=== PATIENT | female | born 1945 | race African-American/Black ===

== ENCOUNTER 2018-02-15 13:47 | Inpatient (IN) | payer MEDICARE, MEDICAID ==
[~2018-02-15] VITALS: Ht 162.6 cm; Wt 86.2 kg
[2018-02-15] MEDS ORDERED: ONDANSETRON HCL 4MG/2ML INJ IV STA (15:36)
[2018-02-15] MEDS ORDERED: MORPHINE SULFATE 4 MG/ML CPJ (NOT FOR IM USE) IV STA (15:36)
[2018-02-15 15:54] LABS: BASOPHILS % 0.3 % (0.0-2.0); EOSINOPHILS % 0.5 % (0.0-5.0); HEMOGLOBIN. 10.1 g/dL (12.0-16.0); LYMPHOCYTES % 10.8 % (20.0-50.0); MEAN CORPUSCULAR VOLUME 91.9 fL (81.0-99.0); MEAN PLATELET VOLUME 7.3 fl (7.4-10.4); MONOCYTES % 11.5 % (2.0-8.0); NEUTROPHILS % 76.9 % (40.0-76.0); PLATELET 323 x1000/uL (130-400); RED BLOOD CELL COUNT 3.26 mill/uL (4.2-5.4); RED CELL DISTRIBUTION WIDTH 14.9 % (11.6-14.6)
[2018-02-15 16:03] LABS: INR 1.2; PARTIAL THROMBOPLASTIN TIME 41.7 sec (23.4-31.0); PROTHROMBIN TIME 11.7 sec (9.1-11.1)
[2018-02-15 16:05] LABS: CHLORIDE 98 mEq/L (98-107)
[2018-02-15] MEDS ORDERED: FUROSEMIDE 40MG/4ML VIAL IVP ONE (16:30)
[2018-02-15 20:15] VITALS: BP 182/74
[2018-02-15] MEDS ORDERED: CLONIDINE 0.1MG TABLET PO PRN (20:15)
[2018-02-15] MEDS ORDERED: ONDANSETRON HCL 4MG/2ML INJ IV PRN (20:15)
[2018-02-15] MEDS ORDERED: ACETAMINOPHEN 325MG TABLET PO PRN (20:15)
[2018-02-15] MEDS ORDERED: MAGNESIUM/ALUMINUM HYDROXIDE/SIMETHICONE 30ML UDC PO PRN (20:15)
[2018-02-15] MEDS ORDERED: IPRATROPIUM/ALBUTEROL 0.5-3(2.5)MG/3ML NEB INH PRN (20:15)
[2018-02-15 21:00] VITALS: BP 143/68
[2018-02-15] MEDS: SODIUM CHLORIDE 0.9% INJ 3ML FLUSH IVF SCH (21:38)
[2018-02-15] MEDS ORDERED: HYDROCODONE/ACETAMINOPHEN 5/325MG TABLET PO PRN (23:15)
[2018-02-15] MEDS ORDERED: METHYLPREDNISOLONE SOD SUCC 40 MG/ML VIAL IV NR (23:19)
[2018-02-16 00:06] VITALS: BP 188/82
[2018-02-16] MEDS: AMLODIPINE 5MG TABLET PO SCH ×3 (01:01→20:40)
[2018-02-16 04:00] VITALS: BP 171/66
[2018-02-16] MEDS: SODIUM CHLORIDE 0.9% INJ 3ML FLUSH IVF SCH ×3 (06:35→21:50)
[2018-02-16 07:30] VITALS: BP 161/74
[2018-02-16] MEDS: COLCHICINE 0.6MG TABLET PO SCH ×2 (09:08→20:40)
[2018-02-16 12:00] VITALS: BP 147/78
[2018-02-16] MEDS ORDERED: MULT-1146 PO (12:25)
[2018-02-16] MEDS ORDERED: TOLT2CAP21 PO (12:25)
[2018-02-16] MEDS ORDERED: ABAC300T9 PO (12:25)
[2018-02-16] MEDS ORDERED: AMLO10TA80 PO (12:25)
[2018-02-16] MEDS ORDERED: METO100T16 PO (12:25)
[2018-02-16] MEDS ORDERED: ATOR-2 PO (12:25)
[2018-02-16] MEDS ORDERED: LAMI100T7 PO (12:25)
[2018-02-16] MEDS ORDERED: CHOL200059 PO (12:25)
[2018-02-16] MEDS ORDERED: ASPI-1158 PO (12:25)
[2018-02-16 16:00] VITALS: BP 154/103
[2018-02-16] MEDS ORDERED: METHYLPREDNISOLONE SOD SUCC 125 MG/2 ML VIAL IV SCH (16:45)
[2018-02-16] MEDS: ABACAVIR SULFATE 300MG TABLET PO SCH (18:00)
[2018-02-16 20:00] VITALS: BP 152/86
[2018-02-16] MEDS: METOPROLOL TARTRATE 100MG TABLET PO SCH (20:42)
[2018-02-16] MEDS: LORAZEPAM 0.5MG TABLET PO PRN (21:50)
[2018-02-17] VITALS: BP 149/74
[2018-02-17 04:00] VITALS: BP 157/74
[2018-02-17] MEDS: SODIUM CHLORIDE 0.9% INJ 3ML FLUSH IVF SCH ×3 (05:58→21:01)
[2018-02-17 08:11] VITALS: BP 158/79
[2018-02-17] MEDS: ABACAVIR SULFATE 300MG TABLET PO SCH ×3 (09:00→19:04)
[2018-02-17] MEDS: LAMIVUDINE 150MG TABLET PO SCH ×2 (09:00→13:24)
[2018-02-17] MEDS: MULTIVITAMINS,THER W-MINERALS TABLET PO SCH (09:39)
[2018-02-17] MEDS: CHOLECALCIFEROL (D3) 1000 UNIT TABLET PO SCH (09:39)
[2018-02-17] MEDS: AMLODIPINE 5MG TABLET PO SCH ×2 (09:39→20:52)
[2018-02-17] MEDS: METOPROLOL TARTRATE 100MG TABLET PO SCH ×2 (09:39→20:51)
[2018-02-17] MEDS: COLCHICINE 0.6MG TABLET PO SCH (09:39)
[2018-02-17] MEDS: ASPIRIN 81MG EC TABLET PO SCH (09:39)
[2018-02-17 10:04] LABS: HEMATOCRIT. 29.9 % (36.0-48.0); MEAN CORPUSCULAR HEMOGLOBIN 30.7 pg (28.0-32.0); MEAN CORPUSCULAR VOLUME 92.1 fL (81.0-99.0); MEAN PLATELET VOLUME 7.7 fl (7.4-10.4); PLATELET 363 x1000/uL (130-400); RED BLOOD CELL COUNT 3.25 mill/uL (4.2-5.4); RED CELL DISTRIBUTION WIDTH 14.4 % (11.6-14.6)
[2018-02-17] MEDS ORDERED: RALT400T MT (10:11)
[2018-02-17 11:28] LABS: PLATELET ESTIMATE NORMAL
[2018-02-17 12:13] VITALS: BP 151/77
[2018-02-17] MEDS: MICONAZOLE NITRATE 100MG VAG SUPP VG SCH ×2 (13:24→20:57)
[2018-02-17] MEDS: RALTEGRAVIR 400MG TABLET PO SCH ×2 (13:24→19:04)
[2018-02-17 15:45] VITALS: BP 105/72
[2018-02-17 20:00] VITALS: BP 163/71
[2018-02-17] MEDS: METRONIDAZOLE 500MG TABLET PO SCH (21:01)
[2018-02-18] VITALS (8 sets, daily range): BP systolic 108–172; BP diastolic 68–79
[2018-02-18] MEDS: SODIUM CHLORIDE 0.9% INJ 3ML FLUSH IVF SCH ×3 (05:36→22:23)
[2018-02-18] MEDS: METRONIDAZOLE 500MG TABLET PO SCH ×3 (05:36→22:25)
[2018-02-18] MEDS: ASPIRIN 81MG EC TABLET PO SCH (09:35)
[2018-02-18] MEDS: COLCHICINE 0.6MG TABLET PO SCH (09:35)
[2018-02-18] MEDS: ABACAVIR SULFATE 300MG TABLET PO SCH ×2 (09:35→19:57)
[2018-02-18] MEDS: CHOLECALCIFEROL (D3) 1000 UNIT TABLET PO SCH (09:35)
[2018-02-18] MEDS: MULTIVITAMINS,THER W-MINERALS TABLET PO SCH (09:35)
[2018-02-18] MEDS: AMLODIPINE 5MG TABLET PO SCH ×2 (09:35→22:22)
[2018-02-18] MEDS: RALTEGRAVIR 400MG TABLET PO SCH ×2 (09:36→19:57)
[2018-02-18] MEDS: LAMIVUDINE 150MG TABLET PO SCH (09:36)
[2018-02-18] MEDS: METOPROLOL TARTRATE 100MG TABLET PO SCH ×2 (09:39→22:22)
[2018-02-18] MEDS: LORAZEPAM 0.5MG TABLET PO PRN (22:19)
[2018-02-18] MEDS: MICONAZOLE NITRATE 100MG VAG SUPP VG SCH (22:23)
[2018-02-19] VITALS: BP 162/68
[2018-02-19 04:00] VITALS: BP 151/58
[2018-02-19] MEDS: SODIUM CHLORIDE 0.9% INJ 3ML FLUSH IVF SCH ×2 (05:51→13:30)
[2018-02-19] MEDS: METRONIDAZOLE 500MG TABLET PO SCH ×2 (05:51→14:28)
[2018-02-19] MEDS: CHOLECALCIFEROL (D3) 1000 UNIT TABLET PO SCH (08:06)
[2018-02-19] MEDS: ASPIRIN 81MG EC TABLET PO SCH (08:06)
[2018-02-19] MEDS: MULTIVITAMINS,THER W-MINERALS TABLET PO SCH (08:06)
[2018-02-19] MEDS: COLCHICINE 0.6MG TABLET PO SCH (08:06)
[2018-02-19] MEDS: RALTEGRAVIR 400MG TABLET PO SCH (08:06)
[2018-02-19] MEDS: LAMIVUDINE 150MG TABLET PO SCH (08:06)
[2018-02-19] MEDS: ABACAVIR SULFATE 300MG TABLET PO SCH (08:06)
[2018-02-19] MEDS: METOPROLOL TARTRATE 100MG TABLET PO SCH (08:07)
[2018-02-19] MEDS: AMLODIPINE 5MG TABLET PO SCH (08:07)
[2018-02-19 08:41] VITALS: BP 180/69
[2018-02-19 12:21] VITALS: BP 152/72
[2018-02-19 15:15] VITALS: BP 152/72
[2018-02-19] MEDS ORDERED: ATORVASTATIN CALCIUM 10MG TABLET PO SCH (21:00)
== END 2018-02-19 16:00 | disposition home health service (06) | DRG 553 ==
LOC: ER 13:47 → 6WST 15:23 → EDBEDREQ 16:19 → ENRESERV 18:41
PROVIDERS: ADMIT Internal Medicine; ATTEND Internal Medicine
DX: M10.9 Gout, unspecified (principal); E43 Unspecified severe protein-calorie malnutrition; E87.1 Hypo-osmolality and hyponatremia; N18.9 Chronic kidney disease, unspecified; M21.611 Bunion of right foot; E11.22 Type 2 diabetes mellitus with diabetic chronic kidney disease; I48.91 Unspecified atrial fibrillation; M21.612 Bunion of left foot; I12.9 Hypertensive chronic kidney disease with stage 1 through stage 4 chronic kidney disease, or unspecified chronic kidney disease; A59.01 Trichomonal vulvovaginitis; Z60.2 Problems related to living alone; Z88.0 Allergy status to penicillin; Z88.2 Allergy status to sulfonamides; Z88.6 Allergy status to analgesic agent; Z91.013 Allergy to seafood; Z68.32 Body mass index [BMI] 32.0-32.9, adult
CPT/HCPCS: 36415; 71045; 80048; 82962; 83880; 84484; 84550; 85651; 87070; 87077; 93005; 93306; 96374; 96375; 97116; 97162; 97530; 99285; C1893; J1940; J2270; J2405; J2920; J2930

== ENCOUNTER → 2019-07-23 | Outpatient (CLI) | payer MEDICARE, MEDICAID ==
[~2019-07-23] MED LIST: ABAC300T9 PO; AMLO10TA80 PO; ASPI-1158 PO; ATOR-2 PO; CHOL200059 PO; LAMI100T7 PO; METO100T16 PO; MULT-1146 PO; RALT400T MT; TOLT2CAP21 PO
== END | disposition home or self-care (01) ==
LOC: MRI 10:30
PROVIDERS: ATTEND Neurological Surgery
DX: M47.816 Spondylosis without myelopathy or radiculopathy, lumbar region (principal); M48.061 Spinal stenosis, lumbar region without neurogenic claudication; M43.16 Spondylolisthesis, lumbar region; N28.1 Cyst of kidney, acquired
CPT/HCPCS: 72148

== ENCOUNTER → 2020-04-09 | Outpatient (CLI) | payer MEDICARE, MEDICAID | END | disposition home or self-care (01) | LOC: MRI 10:30 | PROVIDERS: ATTEND Neurological Surgery | DX: M51.26 Other intervertebral disc displacement, lumbar region (principal); M48.061 Spinal stenosis, lumbar region without neurogenic claudication | CPT/HCPCS: 72148 ==

== ENCOUNTER → 2020-04-22 | Outpatient (CLI) | payer MEDICARE, MEDICAID | END | disposition home or self-care (01) | LOC: MRI 09:24 | PROVIDERS: ATTEND Neurological Surgery | DX: M50.33 Other cervical disc degeneration, cervicothoracic region (principal); M48.03 Spinal stenosis, cervicothoracic region; M47.814 Spondylosis without myelopathy or radiculopathy, thoracic region; M51.24 Other intervertebral disc displacement, thoracic region; M48.02 Spinal stenosis, cervical region; M50.223 Other cervical disc displacement at C6-C7 level; M25.78 Osteophyte, vertebrae | CPT/HCPCS: 72141; 72146 ==

== ENCOUNTER 2021-08-22 13:28 | Inpatient (IN) | payer MEDICARE, MEDICAID ==
[~2021-08-22] VITALS: Ht 167.6 cm; Wt 74.2 kg
[~2021-08-22 13:28] MED LIST changes: -ASPI-1158 PO; +ASPI-1406 PO
[2021-08-22] MEDS ORDERED: ACETAMINOPHEN 325MG TABLET PO STA (14:08)
[2021-08-22] MEDS ORDERED: SODIUM CHLORIDE 0.9% 1,000 ML IV ONE (14:15)
[2021-08-22 14:53] LABS: BASOPHILS % 0.2 % (0.0-2.0); EOSINOPHILS % 0.1 % (0.0-5.0); HEMATOCRIT. 35.1 % (36.0-48.0); HEMOGLOBIN. 11.5 g/dL (12.0-16.0); LYMPHOCYTES % 7.5 % (20.0-50.0); MEAN CORPUSCULAR HEMOGLOBIN 28.7 pg (28.0-32.0); MEAN CORPUSCULAR VOLUME 87.6 fL (81.0-99.0); MEAN PLATELET VOLUME 7.2 fl (7.4-10.4); MONOCYTES % 4.9 % (2.0-8.0); NEUTROPHILS % 87.3 % (40.0-76.0); PLATELET 365 x1000/uL (130-400); RED CELL DISTRIBUTION WIDTH 14.6 % (11.6-14.6)
[2021-08-22 14:54] LABS: CLARITY URINE CLOUDY (CLEAR); COLOR URINE YELLOW (YELLOW); KETONES URINE NEGATIVE (NEGATIVE); LEUKOCYTE ESTERASE URINE TRACE (NEGATIVE); NITRITE URINE NEGATIVE (NEGATIVE); OCCULT BLOOD URINE 2+ (NEGATIVE); PROTEIN URINE 2+ (NEGATIVE); SPECIFIC GRAVITY URINE 1.013 (1.005-1.030); UROBILINOGEN URINE 0.2 E.U./dL (0.2-1.0)
[2021-08-22 15:03] LABS: CHLORIDE 97 mEq/L (98-107)
[2021-08-22] MEDS ORDERED: ASPIRIN 325MG EC TABLET PO ONE (15:45)
[2021-08-22] MEDS ORDERED: LEVOFLOXACIN 500MG PREMIX 100 ML IV NR (16:15)
[2021-08-22] MEDS ORDERED: CLONIDINE 0.1MG TABLET PO NR (18:00)
[2021-08-22] MEDS ORDERED: ACETAMINOPHEN 325MG TABLET PO NR (19:22)
[2021-08-22 21:00] VITALS: BP 157/77
[2021-08-22 21:30] VITALS: BP 159/77
[2021-08-22] MEDS ORDERED: HYDROCODONE/ACETAMINOPHEN 5/325MG TABLET PO PRN (23:45)
[2021-08-22] MEDS ORDERED: SODIUM BICARBONATE 8.4% 1 MEQ/ML 50ML SYR IV NR (23:45)
[2021-08-23] VITALS: BP 172/90
[2021-08-23] MEDS ORDERED: NALOXONE HCL 0.4 MG/ML 1ML VIAL IV PRN (00:15)
[2021-08-23] MEDS: TRAMADOL 50MG TABLET PO PRN (00:43)
[2021-08-23] MEDS: CLONIDINE 0.1MG TABLET PO PRN ×2 (00:44→06:47)
[2021-08-23 04:00] VITALS: BP 159/93
[2021-08-23 06:13] LABS: HEMATOCRIT 26.8 % (36.0-48.0); HEMOGLOBIN 8.9 g/dL (12.0-16.0); MEAN CORPUSCULAR HEMOGLOBIN 29.2 pg (28.0-32.0); PLATELET 266 x1000/uL (130-400); RED BLOOD CELL COUNT 3.05 mill/uL (4.2-5.4); RED CELL DISTRIBUTION WIDTH 14.4 % (11.6-14.6)
[2021-08-23] MEDS: SODIUM CHLORIDE 0.9% 1,000 ML IV SCH (07:30)
[2021-08-23 08:00] VITALS: BP 155/85
[2021-08-23] MEDS ORDERED: ASPIRIN 81MG TABLET PO SCH (09:00)
[2021-08-23] MEDS ORDERED: METOPROLOL TARTRATE 50MG TABLET PO SCH (09:00)
[2021-08-23 09:35] LABS: BG CARBOXYHEMOGLOBIN 0.3 % (0.5-1.5); BG DEOXYHEMOGLOBIN 2.1 % (0.0-5.0); BG FRACTION INSPIRED OXYGEN 21; BG HCO3 ACT 12.3 mmol/L (22.0-26.0); BG METHEMOGLOBIN 0.3 % (0.0-1.5); BG OXYGEN SATURATION 97.9 % (92.0-98.5); BG OXYHEMOGLOBIN 97.3 % (94.0-97.0); BG PCO2 23.1 mmHg (35.0-45.0); BG PH 7.343 (7.350-7.450); BG PO2 106.1 mmHg (75.0-100.0); BG SAMPLE SITE RIGHT RADIAL; BG TOTAL HEMOGLOBIN 9.1 g/dL (12.0-18.0); BG VENT MODE ROOM AIR
[2021-08-23] MEDS: HYDRALAZINE HCL 100MG TABLET PO SCH ×2 (10:16→21:45)
[2021-08-23] MEDS: AMLODIPINE 10MG TABLET PO SCH (10:16)
[2021-08-23 10:21] LABS: CREATINE KINASE 350 IU/L (26-192)
[2021-08-23] MEDS ORDERED: SODIUM CHLORIDE 0.45% 1,000 ML IV SCH (10:45)
[2021-08-23 12:00] VITALS: BP 157/84
[2021-08-23] MEDS ORDERED: SODIUM BICARBONATE 4% (2.4MEQ) 5ML VIAL IV ONE (13:16)
[2021-08-23] MEDS ORDERED: LIDOCAINE HCL 1% 20ML VIAL (Pyxis) INJ ONE ×2 (13:16→14:21)
[2021-08-23 13:29] LABS: INR 1.1; PROTHROMBIN TIME 11.9 sec (9.6-11.0)
[2021-08-23] MEDS ORDERED: HEPARIN 1000 UNITS/ML 10ML ONE (14:23)
[2021-08-23 15:05] LABS: HEPATITIS B SURFACE ANTIGEN NEGATIVE
[2021-08-23 16:00] VITALS: BP 152/83
[2021-08-23 20:00] VITALS: BP 124/67
[2021-08-23] MEDS: ONDANSETRON HCL 4MG/2ML INJ IV PRN (21:45)
[2021-08-24] VITALS: BP 108/50
[2021-08-24 04:00] VITALS: BP 152/65
[2021-08-24] MEDS: SODIUM CHLORIDE 0.9% 1,000 ML IV SCH ×2 (05:42→13:30)
[2021-08-24 06:37] LABS: HEMATOCRIT. 28.2 % (36.0-48.0); HEMOGLOBIN. 9.4 g/dL (12.0-16.0); MEAN CORPUSCULAR HEMOGLOBIN 29.1 pg (28.0-32.0); MEAN CORPUSCULAR VOLUME 87.8 fL (81.0-99.0); MEAN PLATELET VOLUME 7.2 fl (7.4-10.4); PLATELET 286 x1000/uL (130-400); RED BLOOD CELL COUNT 3.22 mill/uL (4.2-5.4); RED CELL DISTRIBUTION WIDTH 14.8 % (11.6-14.6)
[2021-08-24 07:10] LABS: ANTI-NUCLEAR ANTIBODIES DIRECT Negative (Negative)
[2021-08-24 08:00] VITALS: BP 141/81
[2021-08-24] MEDS: AMLODIPINE 10MG TABLET PO SCH (08:30)
[2021-08-24] MEDS: HYDRALAZINE HCL 100MG TABLET PO SCH ×2 (08:30→21:31)
[2021-08-24 08:31] LABS: PLATELET ESTIMATE NORMAL
[2021-08-24] MEDS: TRAMADOL 50MG TABLET PO PRN (11:03)
[2021-08-24 12:00] VITALS: BP 152/89
[2021-08-24 16:00] VITALS: BP 148/80
[2021-08-24 20:00] VITALS: BP 132/69
[2021-08-25] VITALS: BP 162/69
[2021-08-25] MEDS: SODIUM CHLORIDE 0.9% 1,000 ML IV SCH ×3 (01:03→20:43)
[2021-08-25] MEDS: CLONIDINE 0.1MG TABLET PO PRN ×2 (01:04→20:43)
[2021-08-25 04:00] VITALS: BP 154/86
[2021-08-25 08:00] VITALS: BP_SYST 176; BP_SYST 185; BP_DIAS 79; BP_DIAS 97
[2021-08-25 08:15] LABS: BASOPHILS % 0.1 % (0.0-2.0); EOSINOPHILS % 0.1 % (0.0-5.0); HEMATOCRIT. 24.7 % (36.0-48.0); HEMOGLOBIN. 8.3 g/dL (12.0-16.0); LYMPHOCYTES % 9.5 % (20.0-50.0); MEAN CORPUSCULAR HEMOGLOBIN 29.8 pg (28.0-32.0); MEAN CORPUSCULAR VOLUME 88.6 fL (81.0-99.0); MEAN PLATELET VOLUME 6.7 fl (7.4-10.4); MONOCYTES % 6.4 % (2.0-8.0); NEUTROPHILS % 83.9 % (40.0-76.0); PLATELET 256 x1000/uL (130-400); RED BLOOD CELL COUNT 2.79 mill/uL (4.2-5.4); RED CELL DISTRIBUTION WIDTH 14.3 % (11.6-14.6)
[2021-08-25 08:46] LABS: PHOSPHORUS 4.5 mg/dL (2.5-4.9)
[2021-08-25] MEDS: HYDRALAZINE HCL 100MG TABLET PO SCH ×2 (09:51→20:43)
[2021-08-25] MEDS: AMLODIPINE 10MG TABLET PO SCH (09:51)
[2021-08-25 12:00] VITALS: BP_SYST 132; BP_SYST 160; BP_DIAS 76; BP_DIAS 80
[2021-08-25] MEDS ORDERED: POTASSIUM CHLORIDE 20MEQ/PACKET PO NR (12:15)
[2021-08-25] MEDS: ENOXAPARIN 80MG/0.8ML SYR SUBCUT SCH (13:52)
[2021-08-25] MEDS: ONDANSETRON HCL 4MG/2ML INJ IV PRN (13:52)
[2021-08-25 16:00] VITALS: BP_SYST 155; BP_SYST 169; BP_DIAS 72; BP_DIAS 84
[2021-08-25] MEDS: TRAMADOL 50MG TABLET PO PRN (16:22)
[2021-08-25 20:00] VITALS: BP 182/95
[2021-08-26] VITALS (7 sets, daily range): BP systolic 140–181; BP diastolic 64–89
[2021-08-26] MEDS: SODIUM CHLORIDE 0.9% 1,000 ML IV SCH ×2 (05:07→10:38)
[2021-08-26 07:18] LABS: INR 1.1; PROTHROMBIN TIME 11.9 sec (9.6-11.0)
[2021-08-26 07:19] LABS: BASOPHILS % 0.3 % (0.0-2.0); EOSINOPHILS % 0.5 % (0.0-5.0); HEMOGLOBIN. 8.6 g/dL (12.0-16.0); MEAN CORPUSCULAR HEMOGLOBIN 29.5 pg (28.0-32.0); MEAN CORPUSCULAR VOLUME 89.7 fL (81.0-99.0); MEAN PLATELET VOLUME 7.2 fl (7.4-10.4); MONOCYTES % 6.8 % (2.0-8.0); NEUTROPHILS % 80.4 % (40.0-76.0); PLATELET 265 x1000/uL (130-400); RED CELL DISTRIBUTION WIDTH 14.6 % (11.6-14.6)
[2021-08-26] MEDS: CLONIDINE 0.1MG TABLET PO PRN ×2 (08:33→17:37)
[2021-08-26] MEDS: AMLODIPINE 10MG TABLET PO SCH (08:33)
[2021-08-26] MEDS: HYDRALAZINE HCL 100MG TABLET PO SCH (08:33)
[2021-08-26] MEDS: ENOXAPARIN 80MG/0.8ML SYR SUBCUT SCH (08:35)
[2021-08-26 10:22] LABS: TOTAL IRON BINDING CAPACITY 197 ug/dL (250-450)
[2021-08-26] MEDS ORDERED: HEPARIN SODIUM 1,000 UNIT/1ML VIAL IV SCH (12:00)
[2021-08-26] MEDS ORDERED: MANNITOL 12.5G (25%) VIAL 50ML IV NR (13:00)
[2021-08-26 13:07] LABS: HIV 1 ABS Reactive (Non Reactive); HIV 2 ABS Non Reactive (Non Reactive); HIV SCREEN 4G Preliminary Reactive (Non Reactive); INTERPRETATION HIV-1 Positive (.)
[2021-08-26] MEDS ORDERED: HYDRALAZINE HCL 100MG TABLET PO SCH (17:00)
== END 2021-08-26 21:10 | DRG 682 ==
LOC: ER 13:33 → 6WST 19:16 → EDBEDREQ 19:19 → EDBEDREQTM 19:19 → ENRESERV 19:35
PROVIDERS: ADMIT Internal Medicine; ATTEND Internal Medicine
PROC: 02H633Z Insertion of Infusion Device into Right Atrium, Percutaneous Approach (ICD-10-PCS; principal; 2021-08-23)
PROC: 5A1D70Z Performance of Urinary Filtration, Intermittent, Less than 6 Hours Per Day (ICD-10-PCS; 2021-08-23)
PROC: 0S9C3ZZ Drainage of Right Knee Joint, Percutaneous Approach (ICD-10-PCS; 2021-08-23)
PROC: B5181ZA Fluoroscopy of Superior Vena Cava using Low Osmolar Contrast, Guidance (ICD-10-PCS; 2021-08-23)
PROC: B548ZZA Ultrasonography of Superior Vena Cava, Guidance (ICD-10-PCS; 2021-08-23)
DX: N17.9 Acute kidney failure, unspecified (principal); G93.41 Metabolic encephalopathy; G82.50 Quadriplegia, unspecified; E43 Unspecified severe protein-calorie malnutrition; I13.0 Hypertensive heart and chronic kidney disease with heart failure and stage 1 through stage 4 chronic kidney disease, or unspecified chronic kidney disease; E87.1 Hypo-osmolality and hyponatremia; I69.351 Hemiplegia and hemiparesis following cerebral infarction affecting right dominant side; N39.0 Urinary tract infection, site not specified; R47.01 Aphasia; M25.461 Effusion, right knee; D64.9 Anemia, unspecified; I48.0 Paroxysmal atrial fibrillation; I50.9 Heart failure, unspecified; I65.23 Occlusion and stenosis of bilateral carotid arteries; E86.0 Dehydration; M10.9 Gout, unspecified; E11.22 Type 2 diabetes mellitus with diabetic chronic kidney disease; E87.8 Other disorders of electrolyte and fluid balance, not elsewhere classified; Z20.822 Contact with and (suspected) exposure to COVID-19; M17.11 Unilateral primary osteoarthritis, right knee; M54.30 Sciatica, unspecified side; N18.30 Chronic kidney disease, stage 3 unspecified; R13.10 Dysphagia, unspecified; Z21 Asymptomatic human immunodeficiency virus [HIV] infection status; Z88.0 Allergy status to penicillin; Z88.2 Allergy status to sulfonamides; Z88.5 Allergy status to narcotic agent; Z68.24 Body mass index [BMI] 24.0-24.9, adult; R53.81 Other malaise
CPT/HCPCS: 20611; 36415; 36556; 36600; 70551; 71045; 73562; 76770; 76937; 77001; 80048; 80053; 81003; 82375; 82436; 82550; 82570; 82805; 83540; 83550; 83735; 83880; 83935; 83970; 84100; 84145; 84300; 84484; 84550; 85025; 85027; 86038; 86160; 86701; 86702; 86705; 86709; 86803; 87340; 87389; 87426; 92610; 93005; 97162; 97166; 97530; 99291; C1752; J1644; J1650; J1956; J2150; J2405; J3490; J7030

== ENCOUNTER 2021-08-26 21:10 | Inpatient (IN) | payer MEDICARE, MEDICAID ==
[~2021-08-26] VITALS: Ht 167.6 cm; Wt 84.5 kg
[2021-08-26 21:30] VITALS: BP 176/87
[2021-08-26] MEDS ORDERED: ONDANSETRON HCL 4MG/2ML INJ IV PRN (21:45)
[2021-08-26] MEDS ORDERED: TRAMADOL 50MG TABLET PO PRN (21:45)
[2021-08-26] MEDS ORDERED: NALOXONE HCL 0.4 MG/ML 1ML VIAL IV PRN (21:45)
[2021-08-26 22:00] VITALS: BP 176/87
[2021-08-26 22:51] VITALS: BP 153/102
[2021-08-26] MEDS: HYDRALAZINE HCL 100MG TABLET PO SCH (22:51)
[2021-08-26] MEDS: SODIUM CHLORIDE 0.9% 1,000 ML IV SCH (22:56)
[2021-08-27] MEDS: HYDRALAZINE HCL 100MG TABLET PO SCH ×3 (05:49→22:00)
[2021-08-27 07:19] LABS: INR 1.1; PROTHROMBIN TIME 11.8 sec (9.6-11.0)
[2021-08-27 07:27] LABS: BASOPHILS % 0.2 % (0.0-2.0); EOSINOPHILS % 0.4 % (0.0-5.0); HEMATOCRIT. 27.6 % (36.0-48.0); HEMOGLOBIN. 9.1 g/dL (12.0-16.0); LYMPHOCYTES % 11.6 % (20.0-50.0); MEAN CORPUSCULAR HEMOGLOBIN 29.5 pg (28.0-32.0); MEAN CORPUSCULAR VOLUME 89.8 fL (81.0-99.0); MEAN PLATELET VOLUME 7.2 fl (7.4-10.4); MONOCYTES % 7.3 % (2.0-8.0); NEUTROPHILS % 80.5 % (40.0-76.0); PLATELET 279 x1000/uL (130-400); RED BLOOD CELL COUNT 3.08 mill/uL (4.2-5.4); RED CELL DISTRIBUTION WIDTH 14.6 % (11.6-14.6)
[2021-08-27 08:00] VITALS: BP 180/86
[2021-08-27] MEDS: FOLIC ACID/VITAMIN B COMP W-C TABLET PO SCH (08:42)
[2021-08-27] MEDS: FERROUS SULFATE 325MG TABLET PO SCH ×3 (08:42→17:44)
[2021-08-27] MEDS: AMLODIPINE 10MG TABLET PO SCH (08:43)
[2021-08-27] MEDS: SODIUM CHLORIDE 0.9% 1,000 ML IV SCH ×2 (08:45→22:56)
[2021-08-27] MEDS: ENOXAPARIN 80MG/0.8ML SYR SUBCUT SCH (09:00)
[2021-08-27] MEDS: CLONIDINE 0.1MG TABLET PO PRN (09:05)
[2021-08-27 14:01] LABS: CHLORIDE 115 mEq/L (98-107)
[2021-08-27 14:13] LABS: PHOSPHORUS 2.8 mg/dL (2.5-4.9)
[2021-08-27 16:50] LABS: CLARITY URINE CLEAR (CLEAR); COLOR URINE YELLOW (YELLOW); KETONES URINE NEGATIVE (NEGATIVE); LEUKOCYTE ESTERASE URINE 1+ (NEGATIVE); NITRITE URINE NEGATIVE (NEGATIVE); OCCULT BLOOD URINE TRACE (NEGATIVE); PH URINE 7.5 (4.5-8.0); PROTEIN URINE 2+ (NEGATIVE); SPECIFIC GRAVITY URINE 1.008 (1.005-1.030); UROBILINOGEN URINE 0.2 E.U./dL (0.2-1.0)
[2021-08-27] MEDS: CLONIDINE 0.1MG TABLET PO SCH ×2 (17:45→22:01)
[2021-08-27 20:00] VITALS: BP 160/81
[2021-08-27] MEDS: EPOETIN ALFA-EPBX 10,000 UNIT/ML VIAL SUBCUT SCH (22:02)
[2021-08-28] MEDS: HYDRALAZINE HCL 100MG TABLET PO SCH ×3 (05:49→21:54)
[2021-08-28] MEDS: CLONIDINE 0.1MG TABLET PO SCH (05:50)
[2021-08-28] MEDS: CLONIDINE 0.1MG TABLET PO PRN ×2 (05:51→21:54)
[2021-08-28] MEDS: SODIUM CHLORIDE 0.9% 1,000 ML IV SCH ×2 (06:04→13:26)
[2021-08-28 06:17] LABS: BASOPHILS % 0.4 % (0.0-2.0); EOSINOPHILS % 2.9 % (0.0-5.0); HEMATOCRIT. 28.3 % (36.0-48.0); HEMOGLOBIN. 9.3 g/dL (12.0-16.0); MEAN CORPUSCULAR HEMOGLOBIN 29.1 pg (28.0-32.0); MEAN PLATELET VOLUME 7.1 fl (7.4-10.4); MONOCYTES % 4.8 % (2.0-8.0); NEUTROPHILS % 76.9 % (40.0-76.0); PLATELET 273 x1000/uL (130-400); RED BLOOD CELL COUNT 3.22 mill/uL (4.2-5.4); RED CELL DISTRIBUTION WIDTH 14.9 % (11.6-14.6)
[2021-08-28 06:26] LABS: CHLORIDE 111 mEq/L (98-107)
[2021-08-28 06:39] LABS: CREATINE KINASE 75 IU/L (26-192); TOTAL IRON BINDING CAPACITY 151 ug/dL (250-450)
[2021-08-28 07:02] LABS: FOLIC ACID (FOLATE) SERUM 5.6 ng/mL (>5.38)
[2021-08-28 08:00] VITALS: BP 173/90
[2021-08-28] MEDS ORDERED: POTASSIUM CHLORIDE 20MEQ TABLET SR PO SCH (08:15)
[2021-08-28] MEDS: ENOXAPARIN 80MG/0.8ML SYR SUBCUT SCH (09:00)
[2021-08-28] MEDS: ACETAMINOPHEN 325MG TABLET PO PRN (09:18)
[2021-08-28] MEDS: FOLIC ACID/VITAMIN B COMP W-C TABLET PO SCH (09:18)
[2021-08-28] MEDS: FERROUS SULFATE 325MG TABLET PO SCH ×3 (09:18→16:58)
[2021-08-28] MEDS: AMLODIPINE 10MG TABLET PO SCH (09:19)
[2021-08-28] MEDS ORDERED: SENNOSIDES/DOCUSATE SOD 8.6/50MG TABLET PO PRN (09:45)
[2021-08-28] MEDS: CLONIDINE 0.2MG TABLET PO SCH ×2 (13:20→22:00)
[2021-08-28] MEDS: LACTULOSE 20G/30ML UDC PO PRN (13:25)
[2021-08-28 20:00] VITALS: BP 166/94
[2021-08-29] MEDS: SODIUM CHLORIDE 0.9% 1,000 ML IV SCH
[2021-08-29] MEDS: CLONIDINE 0.1MG TABLET PO PRN ×2 (05:52→21:45)
[2021-08-29] MEDS: CLONIDINE 0.2MG TABLET PO SCH ×3 (05:52→22:00)
[2021-08-29] MEDS: HYDRALAZINE HCL 100MG TABLET PO SCH ×3 (05:53→22:00)
[2021-08-29 08:00] VITALS: BP 146/69
[2021-08-29] MEDS: ENOXAPARIN 80MG/0.8ML SYR SUBCUT SCH (08:56)
[2021-08-29] MEDS: AMLODIPINE 10MG TABLET PO SCH (08:57)
[2021-08-29] MEDS: FOLIC ACID/VITAMIN B COMP W-C TABLET PO SCH (08:57)
[2021-08-29] MEDS: FERROUS SULFATE 325MG TABLET PO SCH ×3 (08:57→16:52)
[2021-08-29 10:25] LABS: HEMATOCRIT. 31.4 % (36.0-48.0); HEMOGLOBIN. 10.1 g/dL (12.0-16.0); MEAN CORPUSCULAR VOLUME 90.3 fL (81.0-99.0); MEAN PLATELET VOLUME 7.3 fl (7.4-10.4); PLATELET 249 x1000/uL (130-400); RED BLOOD CELL COUNT 3.48 mill/uL (4.2-5.4); RED CELL DISTRIBUTION WIDTH 15.1 % (11.6-14.6)
[2021-08-29 11:50] LABS: PLATELET ESTIMATE NORMAL
[2021-08-29] MEDS ORDERED: POTASSIUM PHOS,M-BASIC-D-BASIC 20 MMOL in DEXT 5% WATER 243.3333 ML IV NR (14:00)
[2021-08-29 20:00] VITALS: BP 150/76
[2021-08-30] MEDS: CLONIDINE 0.2MG TABLET PO SCH ×3 (00:27→21:11)
[2021-08-30 03:15] VITALS: BP 140/74
[2021-08-30] MEDS: HYDRALAZINE HCL 100MG TABLET PO SCH ×3 (06:04→21:10)
[2021-08-30 06:56] LABS: BASOPHILS % 0.4 % (0.0-2.0); EOSINOPHILS % 2.2 % (0.0-5.0); HEMATOCRIT. 29.2 % (36.0-48.0); HEMOGLOBIN. 9.3 g/dL (12.0-16.0); LYMPHOCYTES % 16.6 % (20.0-50.0); MEAN CORPUSCULAR HEMOGLOBIN 29.3 pg (28.0-32.0); MEAN CORPUSCULAR VOLUME 92.3 fL (81.0-99.0); MEAN PLATELET VOLUME 7.3 fl (7.4-10.4); MONOCYTES % 6.2 % (2.0-8.0); NEUTROPHILS % 74.6 % (40.0-76.0); PLATELET 233 x1000/uL (130-400); RED BLOOD CELL COUNT 3.16 mill/uL (4.2-5.4); RED CELL DISTRIBUTION WIDTH 15.1 % (11.6-14.6)
[2021-08-30 08:00] VITALS: BP 144/92
[2021-08-30 08:16] LABS: PHOSPHORUS 3.4 mg/dL (2.5-4.9); T4 FREE 1.23 ng/dL (0.76-1.46)
[2021-08-30] MEDS: ENOXAPARIN 80MG/0.8ML SYR SUBCUT SCH (09:00)
[2021-08-30] MEDS: FOLIC ACID/VITAMIN B COMP W-C TABLET PO SCH (09:08)
[2021-08-30] MEDS: FERROUS SULFATE 325MG TABLET PO SCH ×3 (09:08→16:31)
[2021-08-30] MEDS: NIFEDIPINE XL 60MG TAB PO SCH (09:48)
[2021-08-30] MEDS: SODIUM CHLORIDE 0.9% 1,000 ML IV SCH (16:32)
[2021-08-30 20:00] VITALS: BP 146/69
[2021-08-30] MEDS: EPOETIN ALFA-EPBX 10,000 UNIT/ML VIAL SUBCUT SCH (21:09)
[2021-08-31] MEDS: CLONIDINE 0.2MG TABLET PO SCH ×3 (06:03→22:15)
[2021-08-31] MEDS: HYDRALAZINE HCL 100MG TABLET PO SCH ×3 (06:03→22:14)
[2021-08-31 06:19] LABS: BASOPHILS % 0.4 % (0.0-2.0); EOSINOPHILS % 2.4 % (0.0-5.0); HEMATOCRIT. 25.5 % (36.0-48.0); HEMOGLOBIN. 8.3 g/dL (12.0-16.0); LYMPHOCYTES % 16.5 % (20.0-50.0); MEAN CORPUSCULAR HEMOGLOBIN 28.9 pg (28.0-32.0); MEAN CORPUSCULAR VOLUME 88.7 fL (81.0-99.0); MEAN PLATELET VOLUME 7.6 fl (7.4-10.4); MONOCYTES % 6.8 % (2.0-8.0); NEUTROPHILS % 73.9 % (40.0-76.0); PLATELET 222 x1000/uL (130-400); RED BLOOD CELL COUNT 2.88 mill/uL (4.2-5.4); RED CELL DISTRIBUTION WIDTH 14.7 % (11.6-14.6)
[2021-08-31 06:51] LABS: PHOSPHORUS 3.1 mg/dL (2.5-4.9)
[2021-08-31 08:00] VITALS: BP 134/70
[2021-08-31] MEDS: FOLIC ACID/VITAMIN B COMP W-C TABLET PO SCH (08:50)
[2021-08-31] MEDS: NIFEDIPINE XL 60MG TAB PO SCH (08:51)
[2021-08-31] MEDS: FERROUS SULFATE 325MG TABLET PO SCH ×3 (08:51→16:37)
[2021-08-31] MEDS: ENOXAPARIN 80MG/0.8ML SYR SUBCUT SCH (08:51)
[2021-08-31] MEDS ORDERED: SODIUM CHLORIDE 0.9% 100 ML IV ONE (11:00)
[2021-08-31] MEDS: SODIUM CHLORIDE 0.9% 1,000 ML IV SCH (13:10)
[2021-08-31] MEDS: ACETAMINOPHEN 325MG TABLET PO PRN (15:44)
[2021-08-31 20:00] VITALS: BP 168/63
[2021-09-01 06:19] LABS: BASOPHILS % 0.9 % (0.0-2.0); EOSINOPHILS % 3.5 % (0.0-5.0); HEMATOCRIT. 25.4 % (36.0-48.0); HEMOGLOBIN. 8.3 g/dL (12.0-16.0); LYMPHOCYTES % 19.9 % (20.0-50.0); MEAN CORPUSCULAR HEMOGLOBIN 28.9 pg (28.0-32.0); MEAN CORPUSCULAR VOLUME 88.7 fL (81.0-99.0); MEAN PLATELET VOLUME 7.6 fl (7.4-10.4); MONOCYTES % 8.9 % (2.0-8.0); NEUTROPHILS % 66.8 % (40.0-76.0); PLATELET 211 x1000/uL (130-400); RED BLOOD CELL COUNT 2.86 mill/uL (4.2-5.4)
[2021-09-01] MEDS: CLONIDINE 0.2MG TABLET PO SCH ×3 (06:33→22:00)
[2021-09-01] MEDS: HYDRALAZINE HCL 100MG TABLET PO SCH ×3 (06:34→21:10)
[2021-09-01 06:59] LABS: T4 FREE 1.26 ng/dL (0.76-1.46)
[2021-09-01 08:00] VITALS: BP 122/77
[2021-09-01] MEDS: LEVOTHYROXINE SODIUM 25MCG TABLET PO SCH (09:00)
[2021-09-01] MEDS: FOLIC ACID/VITAMIN B COMP W-C TABLET PO SCH (09:00)
[2021-09-01] MEDS: CITRIC ACID/SODIUM CITRATE SOLN 30ML UDC PO SCH ×3 (09:00→16:53)
[2021-09-01] MEDS: FERROUS SULFATE 325MG TABLET PO SCH ×3 (09:01→16:53)
[2021-09-01] MEDS: NIFEDIPINE XL 60MG TAB PO SCH (09:02)
[2021-09-01] MEDS: ENOXAPARIN 80MG/0.8ML SYR SUBCUT SCH (09:03)
[2021-09-01] MEDS: LACTULOSE 20G/30ML UDC PO PRN (15:13)
[2021-09-01 20:00] VITALS: BP 145/53
[2021-09-01] MEDS: EPOETIN ALFA-EPBX 10,000 UNIT/ML VIAL SUBCUT SCH (21:09)
[2021-09-01] MEDS: ACETAMINOPHEN 325MG TABLET PO PRN (21:10)
[2021-09-02] MEDS: CLONIDINE 0.2MG TABLET PO SCH ×2 (06:00→13:02)
[2021-09-02] MEDS: LEVOTHYROXINE SODIUM 25MCG TABLET PO SCH (06:09)
[2021-09-02] MEDS: HYDRALAZINE HCL 100MG TABLET PO SCH ×2 (06:10→14:00)
[2021-09-02 08:00] VITALS: BP 151/48
[2021-09-02] MEDS: CITRIC ACID/SODIUM CITRATE SOLN 30ML UDC PO SCH ×3 (09:38→17:00)
[2021-09-02] MEDS: FOLIC ACID/VITAMIN B COMP W-C TABLET PO SCH (09:40)
[2021-09-02] MEDS: ENOXAPARIN 80MG/0.8ML SYR SUBCUT SCH (09:40)
[2021-09-02] MEDS: NIFEDIPINE XL 60MG TAB PO SCH (09:41)
[2021-09-02] MEDS: FERROUS SULFATE 325MG TABLET PO SCH ×3 (09:41→18:08)
[2021-09-02 10:12] LABS: BASOPHILS % 0.7 % (0.0-2.0); EOSINOPHILS % 2.4 % (0.0-5.0); HEMATOCRIT. 26.5 % (36.0-48.0); HEMOGLOBIN. 8.6 g/dL (12.0-16.0); LYMPHOCYTES % 19.1 % (20.0-50.0); MEAN CORPUSCULAR HEMOGLOBIN 29.6 pg (28.0-32.0); MEAN CORPUSCULAR VOLUME 91.7 fL (81.0-99.0); MEAN PLATELET VOLUME 7.9 fl (7.4-10.4); MONOCYTES % 8.8 % (2.0-8.0); PLATELET 197 x1000/uL (130-400); RED BLOOD CELL COUNT 2.89 mill/uL (4.2-5.4); RED CELL DISTRIBUTION WIDTH 15.9 % (11.6-14.6)
[2021-09-02 10:33] LABS: PHOSPHORUS 3.5 mg/dL (2.5-4.9)
[2021-09-02] MEDS: SODIUM CHLORIDE 0.9% 1,000 ML IV SCH (11:30)
[2021-09-02] MEDS: MAGNESIUM OXIDE 400MG TABLET PO SCH (13:00)
[2021-09-02 20:00] VITALS: BP 145/57
[2021-09-03] MEDS: SODIUM CHLORIDE 0.9% 1,000 ML IV SCH
[2021-09-03] MEDS: HYDRALAZINE HCL 100MG TABLET PO SCH ×4 (00:04→23:59)
[2021-09-03] MEDS: CLONIDINE 0.2MG TABLET PO SCH ×4 (00:04→22:00)
[2021-09-03] MEDS: LEVOTHYROXINE SODIUM 25MCG TABLET PO SCH ×2 (07:13→09:52)
[2021-09-03 08:00] VITALS: BP 141/61
[2021-09-03] MEDS: NIFEDIPINE XL 60MG TAB PO SCH (09:51)
[2021-09-03] MEDS: FOLIC ACID/VITAMIN B COMP W-C TABLET PO SCH (09:51)
[2021-09-03] MEDS: FERROUS SULFATE 325MG TABLET PO SCH ×3 (09:52→18:01)
[2021-09-03] MEDS: ENOXAPARIN 80MG/0.8ML SYR SUBCUT SCH (09:52)
[2021-09-03] MEDS: MAGNESIUM OXIDE 400MG TABLET PO SCH ×2 (09:56→10:01)
[2021-09-03 12:35] LABS: BASOPHILS % 1.1 % (0.0-2.0); EOSINOPHILS % 1.6 % (0.0-5.0); HEMATOCRIT. 25.9 % (36.0-48.0); HEMOGLOBIN. 8.3 g/dL (12.0-16.0); LYMPHOCYTES % 14.3 % (20.0-50.0); MEAN CORPUSCULAR HEMOGLOBIN 29.3 pg (28.0-32.0); MEAN CORPUSCULAR VOLUME 91.2 fL (81.0-99.0); MEAN PLATELET VOLUME 7.7 fl (7.4-10.4); MONOCYTES % 11.9 % (2.0-8.0); NEUTROPHILS % 71.1 % (40.0-76.0); PLATELET 178 x1000/uL (130-400); RED BLOOD CELL COUNT 2.84 mill/uL (4.2-5.4); RED CELL DISTRIBUTION WIDTH 15.6 % (11.6-14.6)
[2021-09-03 17:35] LABS: HEPATITIS B SURFACE ANTIGEN NEGATIVE
[2021-09-03 20:00] VITALS: BP 139/55
[2021-09-03] MEDS: EPOETIN ALFA-EPBX 10,000 UNIT/ML VIAL SUBCUT SCH (21:00)
[2021-09-04] MEDS: CLONIDINE 0.1MG TABLET PO PRN ×3 (00:01→22:40)
[2021-09-04] MEDS: SODIUM CHLORIDE 0.9% 1,000 ML IV SCH ×2 (03:30→23:30)
[2021-09-04] MEDS: CLONIDINE 0.2MG TABLET PO SCH ×3 (06:00→22:00)
[2021-09-04] MEDS: HYDRALAZINE HCL 100MG TABLET PO SCH ×3 (07:19→22:39)
[2021-09-04 07:57] LABS: HEMATOCRIT. 24.9 % (36.0-48.0); MEAN CORPUSCULAR HEMOGLOBIN 29.4 pg (28.0-32.0); MEAN CORPUSCULAR VOLUME 91.3 fL (81.0-99.0); MEAN PLATELET VOLUME 8.3 fl (7.4-10.4); PLATELET 155 x1000/uL (130-400); RED BLOOD CELL COUNT 2.73 mill/uL (4.2-5.4); RED CELL DISTRIBUTION WIDTH 15.7 % (11.6-14.6)
[2021-09-04 08:00] VITALS: BP 140/56
[2021-09-04] MEDS: MAGNESIUM OXIDE 400MG TABLET PO SCH ×2 (09:00→10:43)
[2021-09-04] MEDS: FERROUS SULFATE 325MG TABLET PO SCH ×3 (10:43→18:27)
[2021-09-04] MEDS: FOLIC ACID/VITAMIN B COMP W-C TABLET PO SCH (10:43)
[2021-09-04] MEDS: NIFEDIPINE XL 60MG TAB PO SCH (10:43)
[2021-09-04] MEDS: ENOXAPARIN 80MG/0.8ML SYR SUBCUT SCH (10:44)
[2021-09-04 10:50] LABS: NUCLEATED RED BLOOD CELLS 1 /100 WBC; PLATELET ESTIMATE NORMAL
[2021-09-04 15:11] LABS: 25-HYDROXY VITAMIN D3 45 ng/mL (.)
[2021-09-04 20:00] VITALS: BP 157/64
[2021-09-05] MEDS: LEVOTHYROXINE SODIUM 25MCG TABLET PO SCH (07:02)
[2021-09-05] MEDS: HYDRALAZINE HCL 100MG TABLET PO SCH ×3 (07:03→21:57)
[2021-09-05] MEDS: CLONIDINE 0.2MG TABLET PO SCH ×3 (07:47→21:58)
[2021-09-05 08:00] VITALS: BP 146/62
[2021-09-05] MEDS: MAGNESIUM OXIDE 400MG TABLET PO SCH ×2 (09:00→10:38)
[2021-09-05] MEDS: FERROUS SULFATE 325MG TABLET PO SCH ×3 (10:38→18:22)
[2021-09-05] MEDS: FOLIC ACID/VITAMIN B COMP W-C TABLET PO SCH (10:39)
[2021-09-05] MEDS: NIFEDIPINE XL 60MG TAB PO SCH ×2 (10:39→23:21)
[2021-09-05] MEDS: ENOXAPARIN 80MG/0.8ML SYR SUBCUT SCH (10:40)
[2021-09-05] MEDS ORDERED: ERGOCALCIFEROL 50000UNITS CAPSULE PO SCH (10:45)
[2021-09-05] MEDS: LACTULOSE 20G/30ML UDC PO PRN ×2 (13:24→18:22)
[2021-09-05] MEDS: SODIUM CHLORIDE 0.9% 1,000 ML IV SCH ×2 (19:30→23:20)
[2021-09-05 20:00] VITALS: BP 156/62
[2021-09-06 06:11] LABS: HEMATOCRIT. 24.2 % (36.0-48.0); HEMOGLOBIN. 7.8 g/dL (12.0-16.0); MEAN CORPUSCULAR HEMOGLOBIN 29.2 pg (28.0-32.0); MEAN CORPUSCULAR VOLUME 90.6 fL (81.0-99.0); MEAN PLATELET VOLUME 8.1 fl (7.4-10.4); PLATELET 186 x1000/uL (130-400); RED BLOOD CELL COUNT 2.67 mill/uL (4.2-5.4)
[2021-09-06] MEDS: HYDRALAZINE HCL 100MG TABLET PO SCH ×3 (06:22→22:53)
[2021-09-06] MEDS: LEVOTHYROXINE SODIUM 25MCG TABLET PO SCH (06:23)
[2021-09-06] MEDS: CLONIDINE 0.2MG TABLET PO SCH ×2 (06:23→13:32)
[2021-09-06 08:00] VITALS: BP 152/109
[2021-09-06] MEDS: FERROUS SULFATE 325MG TABLET PO SCH ×3 (09:08→16:33)
[2021-09-06] MEDS: MAGNESIUM OXIDE 400MG TABLET PO SCH (09:09)
[2021-09-06] MEDS: FOLIC ACID/VITAMIN B COMP W-C TABLET PO SCH (09:10)
[2021-09-06] MEDS: ENOXAPARIN 80MG/0.8ML SYR SUBCUT SCH (09:10)
[2021-09-06] MEDS: NIFEDIPINE XL 60MG TAB PO SCH ×2 (09:14→22:53)
[2021-09-06 10:31] LABS: BG BASE EXCESS -2.5 mmol/L (-2.0-2.0); BG CARBOXYHEMOGLOBIN 0.2 % (0.5-1.5); BG DEOXYHEMOGLOBIN 1.5 % (0.0-5.0); BG FRACTION INSPIRED OXYGEN 40; BG HCO3 ACT 21.4 mmol/L (22.0-26.0); BG METHEMOGLOBIN 0.2 % (0.0-1.5); BG OXYGEN SATURATION 98.5 % (92.0-98.5); BG OXYHEMOGLOBIN 98.1 % (94.0-97.0); BG PCO2 32.9 mmHg (35.0-45.0); BG PH 7.431 (7.350-7.450); BG PO2 115.2 mmHg (75.0-100.0); BG SAMPLE SITE RIGHT BRACHIAL; BG TOTAL HEMOGLOBIN 8.1 g/dL (12.0-18.0); BG VENT MODE NASAL CANNULA
[2021-09-06 13:06] LABS: BASOPHILS % 0.4 % (0.0-2.0); EOSINOPHILS % 0.1 % (0.0-5.0); HEMATOCRIT. 25.1 % (36.0-48.0); HEMOGLOBIN. 7.9 g/dL (12.0-16.0); LYMPHOCYTES % 7.3 % (20.0-50.0); MEAN CORPUSCULAR HEMOGLOBIN 29.4 pg (28.0-32.0); MEAN CORPUSCULAR VOLUME 93.1 fL (81.0-99.0); MEAN PLATELET VOLUME 8.1 fl (7.4-10.4); MONOCYTES % 7.4 % (2.0-8.0); NEUTROPHILS % 84.8 % (40.0-76.0); PLATELET 194 x1000/uL (130-400); RED CELL DISTRIBUTION WIDTH 16.5 % (11.6-14.6)
[2021-09-06] MEDS: LACTULOSE 20G/30ML UDC PO PRN ×2 (13:20→16:30)
[2021-09-06] MEDS ORDERED: IPRATROPIUM/ALBUTEROL 0.5-3(2.5)MG/3ML NEB HHN PRN (15:30)
[2021-09-06 19:19] LABS: PLATELET ESTIMATE NORMAL
[2021-09-06 19:50] LABS: CLARITY URINE TURBID (CLEAR); COLOR URINE DARK YELLOW (YELLOW); KETONES URINE NEGATIVE (NEGATIVE); LEUKOCYTE ESTERASE URINE 2+ (NEGATIVE); NITRITE URINE NEGATIVE (NEGATIVE); OCCULT BLOOD URINE NEGATIVE (NEGATIVE); PROTEIN URINE 3+ (NEGATIVE); SPECIFIC GRAVITY URINE 1.018 (1.005-1.030); UROBILINOGEN URINE 0.2 E.U./dL (0.2-1.0)
[2021-09-06 20:00] VITALS: BP 155/44
[2021-09-06] MEDS: EPOETIN ALFA-EPBX 10,000 UNIT/ML VIAL SUBCUT SCH (21:00)
[2021-09-06] MEDS: IPRATROPIUM/ALBUTEROL 0.5-3(2.5)MG/3ML NEB HHN SCH (21:05)
[2021-09-07] MEDS: CLONIDINE 0.1MG TABLET PO PRN (01:05)
[2021-09-07] MEDS: IPRATROPIUM/ALBUTEROL 0.5-3(2.5)MG/3ML NEB HHN SCH ×4 (01:39→21:46)
[2021-09-07] MEDS: CLONIDINE 0.2MG TABLET PO SCH ×4 (06:30→22:42)
[2021-09-07] MEDS: HYDRALAZINE HCL 100MG TABLET PO SCH ×3 (07:20→22:42)
[2021-09-07] MEDS: LEVOTHYROXINE SODIUM 25MCG TABLET PO SCH (07:20)
[2021-09-07 08:00] VITALS: BP 151/74
[2021-09-07] MEDS: FERROUS SULFATE 325MG TABLET PO SCH ×3 (09:19→16:58)
[2021-09-07] MEDS: FOLIC ACID/VITAMIN B COMP W-C TABLET PO SCH (09:19)
[2021-09-07] MEDS: NIFEDIPINE XL 60MG TAB PO SCH ×2 (09:19→21:36)
[2021-09-07] MEDS: ENOXAPARIN 80MG/0.8ML SYR SUBCUT SCH (09:19)
[2021-09-07] MEDS: MAGNESIUM OXIDE 400MG TABLET PO SCH (09:19)
[2021-09-07] MEDS ORDERED: LEVOFLOXACIN 500MG TABLET PO SCH (12:00)
[2021-09-07 20:00] VITALS: BP 121/58
[2021-09-08] MEDS: IPRATROPIUM/ALBUTEROL 0.5-3(2.5)MG/3ML NEB HHN SCH ×4 (01:07→21:48)
[2021-09-08] MEDS: CLONIDINE 0.2MG TABLET PO SCH ×3 (06:00→22:00)
[2021-09-08] MEDS: LEVOTHYROXINE SODIUM 25MCG TABLET PO SCH (06:41)
[2021-09-08] MEDS: HYDRALAZINE HCL 100MG TABLET PO SCH ×3 (07:20→22:00)
[2021-09-08 08:00] VITALS: BP 117/50
[2021-09-08] MEDS: FOLIC ACID/VITAMIN B COMP W-C TABLET PO SCH (08:47)
[2021-09-08] MEDS: NIFEDIPINE XL 60MG TAB PO SCH ×2 (08:47→21:00)
[2021-09-08] MEDS: MAGNESIUM OXIDE 400MG TABLET PO SCH (08:48)
[2021-09-08] MEDS: FERROUS SULFATE 325MG TABLET PO SCH ×3 (08:48→17:07)
[2021-09-08] MEDS: ENOXAPARIN 80MG/0.8ML SYR SUBCUT SCH (08:49)
[2021-09-08 12:30] LABS: BASOPHILS % 0.1 % (0.0-2.0); EOSINOPHILS % 0.3 % (0.0-5.0); HEMOGLOBIN. 7.3 g/dL (12.0-16.0); LYMPHOCYTES % 7.5 % (20.0-50.0); MEAN CORPUSCULAR HEMOGLOBIN 29.3 pg (28.0-32.0); MEAN CORPUSCULAR VOLUME 88.6 fL (81.0-99.0); MEAN PLATELET VOLUME 8.1 fl (7.4-10.4); NEUTROPHILS % 88.1 % (40.0-76.0); PLATELET 174 x1000/uL (130-400); RED BLOOD CELL COUNT 2.48 mill/uL (4.2-5.4); RED CELL DISTRIBUTION WIDTH 16.2 % (11.6-14.6)
[2021-09-08 20:00] VITALS: BP_SYST 102; BP_SYST 110; BP_DIAS 51; BP_DIAS 73
[2021-09-08] MEDS: EPOETIN ALFA-EPBX 10,000 UNIT/ML VIAL SUBCUT SCH (22:02)
[2021-09-09] MEDS: IPRATROPIUM/ALBUTEROL 0.5-3(2.5)MG/3ML NEB HHN SCH ×4 (02:06→21:56)
[2021-09-09] MEDS: LEVOTHYROXINE SODIUM 25MCG TABLET PO SCH (06:02)
[2021-09-09] MEDS: HYDRALAZINE HCL 100MG TABLET PO SCH ×3 (06:02→22:43)
[2021-09-09] MEDS: CLONIDINE 0.2MG TABLET PO SCH ×3 (06:02→22:44)
[2021-09-09 08:00] VITALS: BP 153/61
[2021-09-09] MEDS: MAGNESIUM OXIDE 400MG TABLET PO SCH (08:35)
[2021-09-09] MEDS: FOLIC ACID/VITAMIN B COMP W-C TABLET PO SCH (08:35)
[2021-09-09] MEDS: FERROUS SULFATE 325MG TABLET PO SCH ×3 (08:35→17:43)
[2021-09-09] MEDS: NIFEDIPINE XL 60MG TAB PO SCH ×2 (08:35→22:43)
[2021-09-09] MEDS: ENOXAPARIN 80MG/0.8ML SYR SUBCUT SCH (08:36)
[2021-09-09] MEDS: LEVOFLOXACIN 250MG TABLET PO SCH (12:17)
[2021-09-09] MEDS: ACETAMINOPHEN 325MG TABLET PO PRN (17:43)
[2021-09-09 20:00] VITALS: BP 166/97
[2021-09-09 21:00] LABS: HEPATITIS B SURFACE ANTIGEN NEGATIVE
[2021-09-10] VITALS (12 sets, daily range): BP systolic 124–161; BP diastolic 59–82
[2021-09-10] MEDS: IPRATROPIUM/ALBUTEROL 0.5-3(2.5)MG/3ML NEB HHN SCH ×4 (01:00→20:58)
[2021-09-10 01:48] LABS: BASOPHILS % 0.1 % (0.0-2.0); EOSINOPHILS % 0.8 % (0.0-5.0); HEMATOCRIT. 22.9 % (36.0-48.0); HEMOGLOBIN. 7.3 g/dL (12.0-16.0); LYMPHOCYTES % 10.7 % (20.0-50.0); MEAN CORPUSCULAR HEMOGLOBIN 27.9 pg (28.0-32.0); MEAN CORPUSCULAR VOLUME 87.7 fL (81.0-99.0); MEAN PLATELET VOLUME 8.1 fl (7.4-10.4); MONOCYTES % 7.2 % (2.0-8.0); NEUTROPHILS % 81.2 % (40.0-76.0); PLATELET 243 x1000/uL (130-400); RED BLOOD CELL COUNT 2.61 mill/uL (4.2-5.4); RED CELL DISTRIBUTION WIDTH 16.3 % (11.6-14.6)
[2021-09-10] MEDS: LEVOTHYROXINE SODIUM 25MCG TABLET PO SCH (06:44)
[2021-09-10] MEDS: HYDRALAZINE HCL 100MG TABLET PO SCH ×3 (06:45→22:41)
[2021-09-10] MEDS: CLONIDINE 0.2MG TABLET PO SCH ×3 (06:45→22:41)
[2021-09-10] MEDS ORDERED: LIDOCAINE HCL 1% 20ML VIAL (Pyxis) INJ ONE ×2 (08:14→09:16)
[2021-09-10] MEDS ORDERED: FENTANYL CITRATE/PF 50MCG/ML 2ML VIAL IV NR (08:37)
[2021-09-10] MEDS ORDERED: FENTANYL CITRATE/PF 50MCG/ML 2ML VIAL ONE (08:37)
[2021-09-10] MEDS: FERROUS SULFATE 325MG TABLET PO SCH ×3 (09:47→17:59)
[2021-09-10] MEDS: MAGNESIUM OXIDE 400MG TABLET PO SCH (09:47)
[2021-09-10] MEDS: NIFEDIPINE XL 60MG TAB PO SCH ×2 (09:47→22:40)
[2021-09-10] MEDS: FOLIC ACID/VITAMIN B COMP W-C TABLET PO SCH (09:49)
[2021-09-10 10:44] LABS: INR 1.1; PROTHROMBIN TIME 11.5 sec (9.6-11.0)
[2021-09-11] MEDS: IPRATROPIUM/ALBUTEROL 0.5-3(2.5)MG/3ML NEB HHN SCH ×3 (01:09→14:34)
[2021-09-11] MEDS: HYDRALAZINE HCL 100MG TABLET PO SCH ×2 (06:58→14:09)
[2021-09-11] MEDS: CLONIDINE 0.2MG TABLET PO SCH ×2 (06:59→14:11)
[2021-09-11] MEDS: LEVOTHYROXINE SODIUM 25MCG TABLET PO SCH (06:59)
[2021-09-11 08:00] VITALS: BP 161/50
[2021-09-11] MEDS: NIFEDIPINE XL 60MG TAB PO SCH (09:07)
[2021-09-11] MEDS: FERROUS SULFATE 325MG TABLET PO SCH ×2 (09:07→11:49)
[2021-09-11] MEDS: MAGNESIUM OXIDE 400MG TABLET PO SCH (09:07)
[2021-09-11] MEDS: FOLIC ACID/VITAMIN B COMP W-C TABLET PO SCH (09:07)
[2021-09-11] MEDS: LEVOFLOXACIN 250MG TABLET PO SCH (11:49)
[2021-09-11 12:53] VITALS: BP 150/66
[2021-09-11 14:12] VITALS: BP 150/66
== END 2021-09-11 15:42 | DRG 91 ==
PROVIDERS: ADMIT Physical Medicine & Rehabilitation Spinal Cord Injury Medicine; ATTEND Internal Medicine
PROC: 5A1D70Z Performance of Urinary Filtration, Intermittent, Less than 6 Hours Per Day (ICD-10-PCS; principal; 2021-09-03)
PROC: 5A1D70Z Performance of Urinary Filtration, Intermittent, Less than 6 Hours Per Day (ICD-10-PCS; 2021-09-09)
PROC: 0JH63XZ Insertion of Tunneled Vascular Access Device into Chest Subcutaneous Tissue and Fascia, Percutaneous Approach (ICD-10-PCS; 2021-09-10)
PROC: 02HV33Z Insertion of Infusion Device into Superior Vena Cava, Percutaneous Approach (ICD-10-PCS; 2021-09-10)
PROC: B5181ZA Fluoroscopy of Superior Vena Cava using Low Osmolar Contrast, Guidance (ICD-10-PCS; 2021-09-10)
PROC: 02PYX3Z Removal of Infusion Device from Great Vessel, External Approach (ICD-10-PCS; 2021-09-10)
DX: G92.8 Other toxic encephalopathy (principal); N17.0 Acute kidney failure with tubular necrosis; E43 Unspecified severe protein-calorie malnutrition; G82.50 Quadriplegia, unspecified; J96.01 Acute respiratory failure with hypoxia; I50.33 Acute on chronic diastolic (congestive) heart failure; N18.6 End stage renal disease; I69.351 Hemiplegia and hemiparesis following cerebral infarction affecting right dominant side; J81.1 Chronic pulmonary edema; N25.81 Secondary hyperparathyroidism of renal origin; R47.01 Aphasia; N39.0 Urinary tract infection, site not specified; I13.2 Hypertensive heart and chronic kidney disease with heart failure and with stage 5 chronic kidney disease, or end stage renal disease; D64.9 Anemia, unspecified; D72.819 Decreased white blood cell count, unspecified; E03.9 Hypothyroidism, unspecified; E11.22 Type 2 diabetes mellitus with diabetic chronic kidney disease; E86.0 Dehydration; E87.6 Hypokalemia; E87.70 Fluid overload, unspecified; F01.50 Vascular dementia, unspecified severity, without behavioral disturbance, psychotic disturbance, mood disturbance, and anxiety; F39 Unspecified mood [affective] disorder; I48.0 Paroxysmal atrial fibrillation; M10.9 Gout, unspecified; M17.11 Unilateral primary osteoarthritis, right knee; M48.02 Spinal stenosis, cervical region; M48.061 Spinal stenosis, lumbar region without neurogenic claudication; Z60.2 Problems related to living alone; R13.10 Dysphagia, unspecified; R53.81 Other malaise; Z82.49 Family history of ischemic heart disease and other diseases of the circulatory system; Z99.2 Dependence on renal dialysis; Z68.30 Body mass index [BMI] 30.0-30.9, adult; Z88.0 Allergy status to penicillin; Z88.5 Allergy status to narcotic agent; Z88.8 Allergy status to other drugs, medicaments and biological substances; Z91.013 Allergy to seafood; Z79.82 Long term (current) use of aspirin; Z86.19 Personal history of other infectious and parasitic diseases; E55.9 Vitamin D deficiency, unspecified; R94.6 Abnormal results of thyroid function studies
CPT/HCPCS: 36415; 36558; 36589; 36600; 71045; 77001; 80048; 80053; 80061; 81003; 82140; 82306; 82375; 82533; 82550; 82570; 82607; 82728; 82746; 82805; 83540; 83550; 83735; 84100; 84134; 84145; 84300; 84439; 84443; 84481; 85025; 86376; 86705; 86706; 86709; 86803; 87340; 87426; 92523; 92610; 93970; 94640; 97110; 97162; 97166; 97530; 97535; 99152; C1750; C1769; C1893; J0885; J1650; J3010; J3490; J7030; J7060; A5200; G0500